=== PATIENT | female | born 1980 | race Caucasian/White ===

== ENCOUNTER 2021-12-18 09:52 | Outpatient (CLI) | payer OTHER, SELFPAY ==
[2021-12-18 12:24] LABS: Vitamin B12 385 pg/mL (211-911); Vitamin D,25 Hydroxy 29.8 ng/mL
[2021-12-18 12:55] LABS: ALB/GLOB Ratio 1.1 RATIO (0.9-2.4); AST(SGOT) 26 U/L (15-37); Alanine Aminotransfer ALT/SGPT 48 U/L (13-56); Alkaline Phosphatase 40 U/L (45-117); Anion Gap 7 (5-15); BUN 13 mg/dL (7-18); BUN/Creat Ratio 18.3 RATIO (10-20); Chloride 105 mmol/L (98-107); Cholesterol 132 mg/dL (200); Creatinine, Serum 0.71 mg/dL (0.55-1.02); EST Glomerular Filtration Rate 95 mL/min (>60); Est Glom Filt Rate - Afr Amer 115 mL/min (>60); Globulin 3.8 g/dL (2.2-4.2); Glucose 85 mg/dL (74-106); High Density Lipoprotein 75 mg/dL; Potassium 4.1 mmol/L (3.5-5.1); Protein, Total 7.8 g/dL (6.4-8.2); Sodium Level 138 mmol/L (136-145); Thyroid Stim Hormone (TSH) 1.63 uIU/mL (0.358-3.74); Triglycerides 26 mg/dL; Very Low Density Lipoprotein 5 mg/dL (5-40)
== END 2021-12-18 23:59 | disposition home or self-care (01) ==
LOC: MTLAB 09:54
PROVIDERS: PCP Family Medicine; Referring Provider Family Medicine; Visit Provider Family Medicine
DX: Z13.220 Encounter for screening for lipoid disorders (principal); R53.83 Other fatigue; Z83.79 Family history of other diseases of the digestive system
CPT/HCPCS: 36415; 80053; 80061; 82306; 82607; 84443

== ENCOUNTER → 2022-04-21 | Outpatient (CLI) | payer OTHER, SELFPAY ==
[2022-04-21 09:59] LABS: Absolute Lymphocyte Count 1.26 X10^3/uL (0.83-4.51); Absolute Neutrophil Count 3.6 X10^3/uL (2.0-7.7); Basophil# 0.04 X10^3/uL; Basophil% 0.7 % (0-1); Eosinophil# 0.39 X10^3/uL; Eosinophils% 6.7 % (0-5); Hematocrit 40.1 % (37-47); Hemoglobin 13.1 g/dL (12.0-15.0); Lymphocyte # 1.26 X10^3/ul (0.83-4.51); Lymphocyte % 21.8 % (19-41); Mean Corp Hgb Conc 32.7 g/dL (32-36); Mean Corpuscular Hgb 31.2 pg (27.0-32.0); Mean Corpuscular Volume 95.5 fL (81-99); Mean Platelet Vol. 10.1 fl (6.2-12.0); Monocyte# 0.46 X10^3/uL; NRBC Flagged by Analyzer 0 % (0-5); Neutrophil # 3.62 X10^3/uL (2.7-7.7); Neutrophil % 62.6 % (47-70); Platelet Count 264 K/mm3 (150-450); RBC Distribution Width CV 12.1 % (11.6-14.6); White Blood Count 5.8 K/mm3 (4.4-11.0)
[2022-04-21 10:27] LABS: Ferritin 17 ng/mL (8-252); Iron 75 ug/dL (50-170)
[2022-04-21 10:36] LABS: Vitamin B12 904 pg/mL (211-911); Vitamin D,25 Hydroxy 41.2 ng/mL
== END | disposition home or self-care (01) ==
LOC: MTLAB 08:46
PROVIDERS: PCP Family Medicine; Referring Provider Family Medicine; Visit Provider Family Medicine
DX: R53.83 Other fatigue (principal); E53.8 Deficiency of other specified B group vitamins; E55.9 Vitamin D deficiency, unspecified
CPT/HCPCS: 36415; 82306; 82533; 82607; 82728; 83540; 85025

== ENCOUNTER → 2025-10-08 | Outpatient (CLI) | payer OTHER, SELFPAY ==
--- OUTSIDE RECORDS SUMMARY | 2025-10-09 07:08 | XMS RPT_ITS | CCD ---
Author Organization [facility] Inform ion Partnership [facility] Care Team Providers Care Airplane Designer Name Role Phone Jenna PADILLA, Arsh Rosenberg Primary Care Provider [phone] Unavailable Primary Care Provider CHAVEZ Nelson Referring Unavailable CHAVEZ LAW Attending Unavailable Ahsley Carson Attending Jose Avalos Referring Unavailable Jose Meyers Primary Care Unavailable Medications Completed/Discontinued Medications Medication Drug Class(es) Dates Sig (Normalized) Sig (Original) acetaminophen 325 mg / HYDROcodone bitartrate 5 mg oral tablet (2 sources) Opioid Agonist Start: 07-14-2017 End: 11-19-2019 Hydrocodone-Acetam inophen Discontinued 1 - 2 EACH PO EVERY 6 HOURS NEEDED July 14, 2017 12:59pm November 19, 2019 9:02am amoxicillin 875 mg / clavulanate 125 mg oral tablet (2 sources) Penicillin-class Antibacterial Start: 12-03-2019 End: 12-13-2019 take 1 tablet by mouth every twelve hours Amoxicillin-Pot Clavulanate (Augmentin) 875-125 mg tablet Discontinued 1 TABLET PO Q12H 20 December 03, 2019 12:00am December 13, 2019 12:08am citalopram 40 mg oral tablet (5 sources) Serotonin Reuptake Inhibitor Start: 11-24-2021 take 1 tablet by mouth once daily citalopram (CELEXA) 40 mg tablet take 1 tablet by mouth once daily 120 tablet 1 11/24/2021 Active Start: 07-08-2017 End: 11-19-2019 take 10 mg by mouth once daily Citalopram Discontinued 10 MG PO DAILY July 07, 2017 11:00pm November 19, 2019 9:02am Comment on above: take 1 tablet by angelina th once daily ibuprofen 600 mg oral tablet (2 sources) Nonsteroidal Anti-inflammatory Drug Start: 7 End: 0 take 600 mg by mouth every six hours Ibuprofen Discontinued 600 MG PO EVERY 6 HOURS 30 July 13, 2017 11:00pm November 19, 2019 9:02am Magnesium (2 sources) Start: 7 End: 0 take 400 mg by mouth once daily Magnesium Discontinued 400 MG PO DAILY July 07, 2017 11:00pm November 19, 2019 9:02am Start: 07-08-2017 End: 11-19-2019 take 400 mg by mouth once daily Magnesium Discontinued 400 MG PO DAILY July 08, 2017 12:00am November 19, 2019 10:02am vitamin b12 0.5 mg oral tablet (2 sources) Vitamin B12 Start: 07-08-2017 End: 11-19-2019 take 1000 ug by mouth once daily Cyanocobalamin (Vitamin B-12) Discontinued 1000 MCG PO DAILY@0800 July 07, 2017 11:00pm November 19, 2019 9:02am Problems Active Problems Problem Classification Problem Date Documented Da te Episodic/Chronic Abdominal pain (2 sources) Pain in pelvis; Translations: [Pelvic and perineal pain] Onset: 10-17-2023 10-17-2023 Episodic Acute bronchitis (2 sources) Acute bronchitis; Translations: [Acute bronchitis, unspecified] Episodic Anxiety disorders (3 sources) Generalized anxiety disorder; Translations: [Generalized anxiety disorder] Onset: 11-09-2007 11-09-2007 Chronic Menstrual disorders (2 sources) Dysmenorrhea; Translations: [Dysmenorrhea, unspecified] Onset: 10-17-2023 10-17-2023 Chronic Open wounds of extremities (2 sources) Laceration of hand; Translations: [Laceration without foreign body of left hand, initial encounter] Episodic Other gastrointestinal disorders (3 sources) Constipation; Translations: [Constipation, unspecified] 09-14-2005 Episodic Other hereditary and degenerative nervous system conditions (3 sources) Restless legs; Translations: [Restless legs syndrome] Onset: 02-11-2015 02-11-2015 Chronic Residual codes; unclassified (3 sources) Daytime somnolence; Translations: [Other hypersomnia] Onset: 06-12-2014 11-02-2021 Chronic Thyroid disorders (3 sources) Non-toxic uninodular goiter; Translations: [Nontoxic single thyroid nodule] Onset: 03-12-2009 03-12-2009 Chronic Past or Other Problems Problem Classification Problem Date Documented Da te Episodic/Chronic Nonspecific chest pain (3 sources) Chest pain; Translations: [Chest pain, unspecified] Onset: 02-13-2009 02-13-2009 Episodic Other upper respiratory disease (3 sources) Hypertrophy of nasal turbinates; Translations: [Hypertrophy of nasal turbinates] Onset: 02-27-2014 02-27-2014 Episodic Results Test Name Value Interpretation Reference Range Facil ity US FEMALE PELVIS TRANSABD LT Don 10-17-2023 US FEMALE PELVIS TRANSABD LTD * * *Final Report* * * DATE OF EXAM: Oct 17 2023 11:14AM WRU 1059 - US FEMALE PELVIS TRANSABD LTD / PROCEDURE REASON: multiple diagnoses * * * * Physician Interpretation * * * * EXAMINATION: TRANSVAGINAL AND LIMITED TRANSABDOMINAL FEMALE PELVIC ULTRASOUND CLINICAL HISTORY: Pelvic cramping. Dysmenorrhea TECHNIQUE: Sonography of the pelvis was performed by transvaginal and transabdominal (limited) techniques. Images were obtained and stored in a permanent archive. MQ: [facility]_2021 COMPARISON: None RESULT: Uterus: -Size: 8.9 x 3.7 x 4.8 cm -Orientation: Anteverted and anteflexed -Endometrial echo complex: Evaluation of the endometrium was adequate. Trace endometrial fluid The endometrial echo complex measured 0.5 cm. -Cervix: Nabothian cysts present, otherwise unremarkable. -Adenomyosis assessment: There are no sonographic findings of adenomyosis. -Fibroids: There are no fibroids. Right Ovary: 2.7 x 1.6 x 1.8 cm. Normal appearance Simple 1.1 cm follicular cyst within it Left Ovary: 2.7 x 1.2 x 1.5 cm. Normal appearance Free Fluid: No abnormal free fluid is present. IMPRESSION: Trace endometrial fluid. Otherwise normal pelvic ultrasound Dba: PSCB Transcribe Date/Time: Oct 18 2023 9:29A Dictated by : DARRYN ARCE MD This examination was interpreted and the report reviewed and electronically signed by: DARRYN ARCE MD on Oct 18 2023 9:34AM EST [id number] Normal [facility] FEMALE PELVIS TRANSVAGon 10-17-2023 FEMALE PELVIS TRANSVAG * * *Final Report* * * DATE OF EXAM: Oct 17 2023 11:14AM WRU 1060 - US FEMALE PELVIS TRANSVAG / PROCEDURE REASON: multiple diagnoses * * * * Physician Interpretation * * * * EXAMINATION: TRANSVAGINAL AND LIMITED TRANSABDOMINAL FEMALE PELVIC ULTRASOUND CLINICAL HISTORY: Pelvic cramping. Dysmenorrhea TECHNIQUE: Sonography of the pelvis was performed by transvaginal and transabdominal (limited) techniques. Images were obtained and stored in a permanent archive. MQ: [facility]_2021 COMPARISON: None RESULT: Uterus: -Size: 8.9 x 3.7 x 4.8 cm -Orientation: Anteverted and anteflexed -Endometrial echo complex: Evaluation of the endometrium was adequate. Trace endometrial fluid The endometrial echo complex measured 0.5 cm. -Cervix: Nabothian cysts present, otherwise unremarkable. -Adenomyosis assessment: There are no sonographic findings of adenomyosis. -Fibroids: There are no fibroids. Right Ovary: 2.7 x 1.6 x 1.8 cm. Normal appearance Simple 1.1 cm follicular cyst within it Left Ovary: 2.7 x 1.2 x 1.5 cm. Normal appearance Free Fluid: No abnormal free fluid is present. IMPRESSION: Trace endometrial fluid. Otherwise normal pelvic ultrasound Dba: PSCB Transcribe Date/Time: Oct 18 2023 9:29A Dictated by : DARRYN ARCE MD This examination was interpreted and the report reviewed and electronically signed by: DARRYN ARCE MD on Oct 18 2023 9:34AM EST [id number] Normal [facility] CNOVon 10-11-2023 CNOV Office Visit (OBGYWM ) MELONIE SANTOS ([id number]) 1980 F Date Time Provider Department 10/11/23 1:20 PM CHAVEZ LAW OBGHADAWCameron During your visit today, we recorded the following information about you: Blood pressure Weight Height Last Period 114/80 68.4 kg 1.657 m 09/13/23 Chavez Law MD 10/11/2023 2:08 PM Signed Drain Layer offered: Patient declines. Melonie is a 42 year old who presents for an annual gynecologic exam. She reports increasingly painful menses. Also she has pelvic cramping with ovulation. Menses: cycles every 28 days and 4-6 days of flow. Contraception: vasectomy HPV vaccine: No Last Pap: 05/04/2017 normal HPV: 04/28/2017 negative History of abnormal pap: No Last mammogram: iagnostic imaging OB History T2 L2 SAB0 IAB0 Ectopic0 Multiple0 Live Births0 [employer] History LMP: 09/26/2020 (Within Days), Having periods Age at Menarche: Age at First : Age at Menopause: [employer] History Comments: Sexual Activity: Yes; Male Contraception: Vasectomy PAST MEDICAL HISTORY Diagnosis Date Melanoma (HCC) stage 2 on back Unspecified constipation Constipation PAST SURGICAL HISTORY Procedure Laterality Date DELIVERY ONLY 06/2005 , low cervical HYSTEROSCOPY 07/15/2017 hysteroscopy DANDC w/ Mirena insertion LAPAROSCOPIC CHOLEYCYSTECTOMY 2001 Cholecystectomy, lap PAST SURGICAL HISTORY OF 04/26 removal of stage 2 melanoma on back REMOVAL OF TONSILS,<12 Y/O 1994 Tonsillectomy THYROID LEFT FINE NEEDLE ASPIRATION 04/15 Dr. Erickson FAMILY HISTORY Problem Relation Age of Onset Cancer Paternal Grandmother liver Prostate Cancer Paternal Grandfather SOCIAL HISTORY Social History Tobacco Use Smoking status: Never Smokeless tobacco: Never Vaping Use Vaping Use: Never used Substance Use Topics Alcohol use: No Drug use: No REVIEW OF SYSTEMS Abdomen: No abdominal pain, nausea, vomiting, diarrhea, or constipation. No bloating, early satiety, indigestion, or increased flatulence. Bladder: No dysuria, gross hematuria, urinary frequency, urinary urgency, or incontinence. Breast: No breast lumps, nipple d/c, overlying skin changes, redness or skin retraction. Allergies and current medication updated:Yes EXAM: LMP 09/26/2020 GENERAL: pleasant, female in no apparent distress BREAST: soft, non-tender, symmetric, no dominant mass, normal nipple-areolar complex, no lymphadenopathy, and no nipple discharge CHEST: Normal inspiratory effort ABDOMEN: soft, non-tender, and no masses PELVIC: external genitalia normal, normal Bartholin's glands, urethra, [place]'s glands, no vulvar lesions, no cervical lesions, good vaginal support, physiologic discharge present, normal appearing perineal body and perianal region BIMANUAL: uterus enlarged, no adnexal masses, and non-tender RECTOVAGINAL: deferred. NEURO: alert and oriented x3,exam grossly non-focal EXTREMITIES: normal ASSESSMENT/PLAN: 1) Health maintenance: Pap done with HPV. Mammogram ordered. Nutrition, exercise and routine health maintenance exams reviewed. Colonoscopy referral 2) Contraception: vasectomy. Contraceptive options reviewed and information provided. 3) Dysmenorrhea, pelvic cramping AND enlarged uterus - check pelvic US 4) Follow up one year or sooner as needed MD Keyshawn Eng Ma, [place] 10/11/2023 2:[address] [facility] OPEN ACCESS QUESTIONNAIRE 1. Are you currently having any new or unusual stomach/gastrointestin al issues at this time such as constipation, diarrhea, abdominal pain, rectal bleeding etc?Yes / has constipation, diarrhea and abdominal pain. No treatment 2. Do you have any difficulty swallowing? No 3. Do you have any implanted devices such as a defibrillator, pacemaker, cardiac stents or deep brain stimulator? No 4. Do you take any Blood thinners such as Coumadin, Plavix, Xarelto, Eliquis, Brilinta or any other blood thinner? No 5. Do you have any new or past cardiac (heart) or pulmonary (lung) issues? No 6. Do you currently use any oxygen? No 7. Have you been hospitalized in the past 6 weeks? No 8. Have you had difficulty with anesthesia previously re: Difficult intubation? No Other difficulty or allergic reaction to anesthesia other than post op N/V? No 9. Are you on dialysis? No 10. Do you have any bleeding disorders such as hemophilia or Factor 5? No 11. Are you an Insulin Dependent Diabetic? No IF ANY OF THE TOP ELEVEN QUESTIONS ARE ANSWERED YES PLEASE SCHEDULE THE PATIENT FOR A CONSULT. advised 12. Is the patient's BMI 40 or greater? No:Body mass index is 24.9 kg/m?.. 13. Do you take any narcotics or anti-Anxiety medications? Yes / citalopram 14. Do you use any illegal or recreational drugs including marijuana? No 15. Any alcohol use: No. 16. Have you been diagnosed with chronic liver d (more content not included)... Normal [facility] HPV W/GENOTYPE THIN PREPon 1 12-12-2022 HPV 16 Ag Ql (Unsp spec) Negative Normal Negative for HPV DNA high risk type 16 by PCR [facility] Comment on above: Order Comment: Speci men Type: FLUID SPECIMEN Ordering Facility: [facility] Address: [address] [place] [address] Performed By: #### H PVHRT #### [facility] CLIA [id number] [address] [place] [address] [place] HPV 18 Ag Ql (Unsp spec) Negative Normal Negative for HPV DNA high risk type 18 by PCR [facility] Comment on above: Order Comment: Speci men Type: FLUID SPECIMEN Ordering Facility: [facility] Address: [address] [place] [address] Performed By: #### H PVHRT #### [facility] CLIA [id number] [address] [place] [address] [place] HPV 31+33+35+39+45+51+5 2+56+58+59+66+68 DNA MELISSA+probe Ql (Cvx) Negative for HPV DNA high risk types: 31,33,35,39,45,51,52,5 6,58,59,66,68 by PCR. Normal Negative for HPV DNA high risk types: 31,33,35,39,45, 51,52,56,58,59, 66,68 by PCR. [facility] Comment on above: Order Comment: Speci men Type: FLUID SPECIMEN Ordering Facility: [facility] Address: [address] [place] [address] Performed By: #### H PVHRT #### [facility] CLIA [id number] [address] [place] [address] [place] PAP TESTon 10-11-2023 ADEQUACY Satisfactory for interpretation Normal [facility] Comment on above: Order Comment: Speci men Type: FLUID SPECIMEN Ordering Facility: [facility] Address: [address] [place] [address] Performed By: #### L [id number] #### [facility] CLIA [id number] [address] [place] [address] [place] CASE REPORT Normal [facility] Comment on above: Order Comment: Speci men Type: FLUID SPECIMEN Ordering Facility: [facility] Address: [address] [place] [address] Result Comment: Gyne cologic Cytology Report Case: [id number] Authorizing Provider: Chavez Law MD Collected: 10/11/2023 01:47 PM Ordering Location: OB/Gynecology Received: 10/12/2023 08:22 AM First Screen: Alon Maher Tech Specimen: Pap Test, ThinPrep, Cervix Performed By: #### L [id number] #### [facility] CLIA [id number] [address] [place] [address] [place] CLINICAL HISTORY, CYTOLOGY, LAB COORDINATOR Routine Exam Normal [facility] Comment on above: Order Comment: Speci men Type: FLUID SPECIMEN Ordering Facility: [facility] Address: [address] [place] [address] Performed By: #### L [id number] #### [facility] CLIA [id number] [address] [place] [address] [place] FINAL PERFORMING LAB Normal [facility] Comment on above: Order Comment: Speci men Type: FLUID SPECIMEN Ordering Facility: [facility] Address: [address] [place] [address] Result Comment: Tech nical component, restorative aide screening performed at [facility], [address] [place], [place] [id number] CLIA# [id number] Diagnostic interpretation performed at [facility], [address] [place], [place] [id number] CLIA# [id number] Kalsominer: Ezio Monterroso M.D. Performed By: #### L [id number] #### [facility] CLIA [id number] [address] [place] [place] [id number] [place] HPV REFLEX Yes HPV Normal [facility] Comment on above: Order Comment: Speci men Type: FLUID SPECIMEN Ordering Facility: [facility] Address: [address] [place] [address] Performed By: #### L [id number] #### [facility] CLIA [id number] [address] [place] [address] [place] INTERPRETATION, CYTOLOGY, LAB COORDINATOR Normal [facility] Comment on above: Order Comment: Speci men Type: FLUID SPECIMEN Ordering Facility: [facility] Address: [address] [place] [address] Result Comment: Nega tive for intraepithelial lesion or malignancy. Performed By: #### L [id number] #### [facility] CLIA [id number] [address] [place] [address] [place] LMP 09/13/2023 Normal [facility] Comment on above: Order Comment: Speci men Type: FLUID SPECIMEN Ordering Facility: [facility] Address: [address] [place] [address] Performed By: #### L [id number] #### [facility] CLIA [id number] [address] [place] [address] [place] PAP DISCLAIMER COMMENT The Pap Smear is a screening test for cervical cancer. False negative results occur with all screening tests, emphasizing the need for rescreening at recommended intervals, and clinical correlation. Normal [facility] Comment on above: Order Comment: Speci men Type: FLUID SPECIMEN Ordering Facility: [facility] Address: [address] [place] [address] Performed By: #### L [id number] #### [facility] CLIA [id number] [address] [place] [id number] [place] PAP PRISON WARDEN COMMENT This specimen has be en analyzed by the ThinPrep Imaging System, an automated imaging and review system, which assists the laboratory in evaluating cells on ThinPrep Pap tests. Following automated imaging, selected cast from every slide are reviewed by a restorative aide. Normal [facility] Comment on above: Order Comment: Speci men Type: FLUID SPECIMEN Ordering Facility: [facility] Address: [address] [place] [address] Performed By: #### L [id number] #### [facility] CLIA [id number] [address] [facility] [id number] [place] [address] [place] Absolute lymphocyte counton 04-21-2022 Lymphocytes Auto (Unsp spec) [#/Vol] 1.26 10*3/uL 0.83-4.51 [facility] Work Phone: Basophil percentageon 2021 Basophils/100 WBC (Bld) 0.7 % 0-1 [facility] Work Phone: Eosinophils/100 WBC (Bld) 6.7 % 0-5 [facility] Work Phone: Neutrophils (Bld) [#/Vol] 3.6 10*3/uL 2.0-7.7 [facility] Work Phone: Neutrophils/100 WBC (Bld) 62.6 % 47-70 [facility] Work Phone: WBC (Bld) [#/Vol] 5.8 10*3/uL 4.4-11.0 [facility] Work Phone: Blood erythrocytes count (nu mber/volume)on 04-21-2022 RBC (Bld) [#/Vol] 4.20 10*6/uL 4.2-5.4 [facility] Work Phone: Blood hemoglobin measurement (mass/volume)on 04-21-2022 Hemoglobin (Bld) [Mass/Vol] 13.1 g/dL 12.0-15.0 [facility] Work Phone: Blood lymphocytes/100 leukoc yteson 04-21-2022 Lymphocytes/100 WBC (Bld) 21.8 % 19-41 [facility] Work Phone: Blood monocytes/100 leukocyt eson 04-21-2022 Monocytes/100 WBC (Bld) 8.0 % 0-10 [facility] Work Phone: Blood platelet mean volumeon 04-21-2022 Platelet mean volume (Bld) [Entitic vol] 10.1 fL 6.2-12.0 [facility] Work Phone: Determination of erythrocyte mean corpuscular volume (MCV)on 04-21-2022 MCV (RBC) [Entitic vol] 95.5 fL 81-99 [facility] Work Phone: Hematocrit Auto (Bld) [Volum e fraction]on 04-21-2022 Hematocrit (Bld) [Volume fraction] 40.1 % 37-47 [facility] Work Phone: Iron measurement (mass/mass) on 04-21-2022 Iron (Unsp spec) [Mass/Mass] 75 ug/dL 50-170 [facility] Work Phone: Laboratory - Chemistry and C hemistry - challengeon 04-21-2022 Cobalamin (Vitamin B12) [Mass/Vol] 904 pg/mL 211-911 [facility] Work Phone: Laboratory - Hematology and Cell countson 04-21-2022 Erythrocyte distribution width (RBC) [Entitic vol] 42.0 fL 35.1-43.9 [facility] Work Phone: Erythrocyte distribution width (RBC) [Ratio] 12.1 % 11.6-14.6 [facility] Work Phone: Immature granulocytes/100 WBC (Bld) 0.200 % 0.0-0.9 [facility] Work Phone: Comment on above: IG% - Immature Granu locytes (promyelocytes, myelocytes and metamyelocytes) > 1% indicates that a LEFT SHIFT is Present. MCH (RBC) [Entitic mass] 31.2 pg 27.0-32.0 [facility] Work Phone: Nucleated RBC/100 WBC (Bld) [Ratio] 0 % 0-5 [facility] Work Phone: MCHC Auto (RBC) [Mass/Vol]on 04-21-2022 MCHC (RBC) [Mass/Vol] 32.7 g/dL 32-36 [facility] Work Phone: No Panel Informationon 04-21 Vitamin D 25-Hydroxy 41.2 ng/mL [facility] Work Phone: Comment on above: Vitamin D 25(OH) Sta tus Range Deficiency <20 ng/mL (50nmol/L) Insufficiency 20 - 30 ng/mL (50 - 75 nmol/L) Sufficiency 30 - 100 ng/mL (75 - 250 nmol/L) Toxicity >100 ng/mL (>250 nmol/L) Platelets bldon 04-21-2022 Platelets (Bld) [#/Vol] 264 10*3/uL 150-450 [facility] Work Phone: Serum or plasma cortisol emy surement (mass/volume)on 04-21-2022 Cortisol [Mass/Vol] 14.30 ug/dL 3.44-22.45 [facility] Work Phone: Comment on above: Adult (AM) 5.27 - 22 .45 ug/dL Adult (PM) 3.44 - 16.76 ug/dLPlease note revised CORTISOL reference range effective 2020. Serum or plasma ferritin emy surement (mass/volume)on 04-21-2022 Ferritin [Mass/Vol] 17 ng/mL 8-252 [facility] Work Phone: Encounters Encounter Date Encounter Type Care Provider Facility Start: 08-12-2025 ambulatory Ashley Patel cility:[facility] Start: 10-17-2023 End: 10-17-2023 ambulatory [facility] Facility:[facility] Start: 10-17-2023 End: 10-17-2023 Subsequent hospital visit by physician [facility] Work Phone: Radiology Comment on above: Pelvic cramping [R10 .2] Start: 10-11-2023 End: 10-11-2023 ambulatory [facility] Facility:[facility] Start: 03-12-2023 Refill Jennifer muse MD Work Phone: OB/Gynecology Comment on above: Refill Request Start: 07-31-2022 Refill Jennifer muse MD Work Phone: OB/Gynecology Comment on above: Refill Request Start: 04-21-2022 End: 04-21-2022 Patient encounter procedure [facility], [place] Procedures Date Procedure Procedure Detail Performing Clinician Start: 10-10-2020 Mammography Jennifer chaudhary MD Work Phone: Start: 05-22-2014 Adult depression scr eening assessment Jennifer Perea MD Work Phone: Plan of Treatment Date Care Activity Detail Author Start: 09-04-2029 Urine microalbumin profile DTaP,Tdap,Td Vaccine (9 - Td or Tdap) [facility] Start: 02-11-2025 Urine microalbumin profile DTAP,TDAP,TD (7 - Td or Tdap) [facility] Start: 07-08-[address] [facility] Start: 11-07-2022 DEPRESSION ASSESSMENT DEPRESSION ASSESSMENT [facility] Start: 07-08-2022 Influenza vaccination INFLUENZA (#1) [facility] Start: 04-26-2022 HPV TESTING HPV TESTING [facility] Start: 04-26-2022 PAP [address] PAP TESTING [facility] Start: 04-26-2022 Screening for malignant neoplasm of cervix [facility] Start: 10-10-[address] [facility] Start: 10-10-2021 Screening for malignant neoplasm of breast Mammogram Screening [facility] Start: 05-22-2015 Adult depression screening assessment DEPRESSION SCREENING [facility] Start: 1996 HEPATITIS C SCREENING HEPATITIS C SCREENING [facility] Start: 1996 Hepatitis C screening Hepatitis C Screening [facility] Start: 1996 HIV SCREENING HIV SCREENING [facility] Start: 1996 HIV screening HIV Screening [facility] Start: 06-14-1979 COVID-19 VACCINE (#1) COVID-19 VACCINE (#1) [facility] Start: 1978 HEPATITIS B (1 of 3 - 3-dose series) HEPATITIS B (1 of 3 - 3-dose series) [facility] Start: 1978 Hepatitis B Vaccine (1 of 3 - 3-dose series) Hepatitis B Vaccine (1 of 3 - 3-dose series) [facility] Us pelvic nonobstetr ic image dcmtn limited/f/u US FEMALE PELVIS TRANSABD LTD Radiology Routine Pelvic cramping Dysmenorrhea 10/17/2023 11:14 AM EST [facility] Work Phone: Us transvaginal US FEMALE PELVIS TRANSVAG Radiology Routine Pelvic cramping Dysmenorrhea 10/17/2023 11:14 AM EST [facility] Work Phone: Immunizations Immunization Date Immunization Notes Care Provider [facility] 09-03-2021 influenza virus vacc ine, unspecified formulation 1 Work Phone: [facility] 02-11-2015 tetanus toxoid, redu ivania diphtheria toxoid, and acellular pertussis vaccine, adsorbed Jennifer Perea MD Work Phone: [facility] 08-17-2013 influenza virus vacc ine, whole virus Jennifer Perea MD Work Phone: [facility] 07-03-1984 diphtheria, tetanus toxoids and acellular pertussis vaccine Jennifer Perea MD Work Phone: [facility] 07-03-1984 trivalent poliovirus vaccine, live, oral Jennifer Perea MD Work Phone: [facility] 04-08-1982 measles, mumps and rubella virus vaccine Jennifer Perea MD Work Phone: [facility] 09-10-1980 diphtheria, tetanus toxoids and acellular pertussis vaccine Jennifer Perea MD Work Phone: [facility] 09-10-1980 trivalent poliovirus vaccine, live, oral Jennifer Perea MD Work Phone: [facility] 10-24-1979 diphtheria, tetanus toxoids and acellular pertussis vaccine Jennifer Perea MD Work Phone: [facility] 06-01-1979 diphtheria, tetanus toxoids and acellular pertussis vaccine Jennifer Perea MD Work Phone: [facility] 06-01-1979 trivalent poliovirus vaccine, live, oral Jennifer Perea MD Work Phone: [facility] 03-28-1979 diphtheria, tetanus toxoids and acellular pertussis vaccine Jennifer Perea MD Work Phone: [facility] 03-28-1979 trivalent poliovirus vaccine, live, oral Jennifer Perea MD Work Phone: [facility] 01-31-1979 trivalent poliovirus vaccine, live, oral Jennifer Perea MD Work Phone: [facility] Payers Date Payer Category Payer Self-pay [id number] 2020 Unknown [id number] 2017 Unknown [id number] Unknown [id number] Social History Date Type Detail Facility Start: 11-19-2019 Tobacco smoking stat [facility] Unknown if ever smoked [facility] Work Phone: Start: 1980 Sex Assigned At Female [facility] Work Phone: Start: 10-11-2023 [facility] Start: 10-10-2020 End: 10-11-2023 Alcohol intake Current non-drinker of alcohol (finding) [facility] Start: 1980 Sex Assigned At Not on file [facility] Start: 10-11-2023 Tobacco use and exposure Smokeless tobacco non-user [facility] Start: 10-11-20[address] of [address] [facility] Start: 10-11-2023 Tobacco use panel [facility] National Score (1-100), lower number is lower risk [address] [facility] Progress note 10-17-2023 Note Date & Type Note Facility 10-17-2023 Note HNO ID: [id number] Author: Amy Multani RDMS Service: ? Author Type: [employer] Helper Type: Progress Notes Filed: 10/17/2023 11:06 AM Note Text: Radiology Service Progress Note PATIENT NAME: Melonie Santos DATE OF SERVICE: October 17, 2023 TIME: 11:06 AM PATIENT IDENTITY VERIFICATION COMPLETED USING TWO (2) IDENTIFIERS: Name and Date of confirmed by patient verbally. FALL SCREENING: Has the patient had 2 falls in the last year or 1 fall with injury or currently using an Ambulatory Assistive Device (Walker, Cane, Wheelchair, Crutches, etc.)? No PATIENT GENDER DATA: Female. status: : No status: NO. PATIENT RELEVANT IMPLANT DATA REVIEWED: Not Applicable RADIOLOGY DEPARTMENT: Ultrasound PERIPHERAL IV DATA: Not applicable SIGNED BY: Amy Multani RDMS October 17, 2023 11:06 AM [facility] History of Present illness Narrative 10-17-2023 Amy Multani RDMS - 10/17/2023 10:45 AM EST Note Date & Type Note Facility 10-17-2023 History of Presen t illness Narrative Radiology Service Progress Note PATIENT NAME: Melonie Santos DATE OF SERVICE: October 17, 2023 TIME: 11:06 AM PATIENT IDENTITY VERIFICATION COMPLETED USING TWO (2) IDENTIFIERS: Name and Date of confirmed by patient verbally. FALL SCREENING: Has the patient had 2 falls in the last year or 1 fall with injury or currently using an Ambulatory Assistive Device (Walker, Cane, Wheelchair, Crutches, etc.)? No PATIENT GENDER DATA: Female. status: : No status: NO. PATIENT RELEVANT IMPLANT DATA REVIEWED: Not Applicable RADIOLOGY DEPARTMENT: Ultrasound PERIPHERAL IV DATA: Not applicable SIGNED BY: Amy Multani RDMS October 17, 2023 11:06 AM documented in this encounter [facility] Progress note 10-11-2023 Note Date & Type Note Facility 10-11-2023 Note HNO ID: [id number] Author: Larisa Mahajan Ma Service: ? Author Type: ? Type: Progress Notes Filed: 10/11/2023 2:08 PM Note Text: TR OPEN ACCESS QUESTIONNAIRE 1. Are you currently having any new or unusual stomach/gastrointestinal issues at this time such as constipation, diarrhea, abdominal pain, rectal bleeding etc?Yes / has constipation, diarrhea and abdominal pain. No treatment 2. Do you have any difficulty swallowing? No 3. Do you have any implanted devices such as a defibrillator, pacemaker, cardiac stents or deep brain stimulator? No 4. Do you take any Blood thinners such as Coumadin, Plavix, Xarelto, Eliquis, Brilinta or any other blood thinner? No 5. Do you have any new or past cardiac (heart) or pulmonary (lung) issues? No 6. Do you currently use any oxygen? No 7. Have you been hospitalized in the past 6 weeks? No 8. Have you had difficulty with anesthesia previously re: Difficult intubation? No Other difficulty or allergic reaction to anesthesia other than post op N/V? No 9. Are you on dialysis? No 10. Do you have any bleeding disorders such as hemophilia or Factor 5? No 11. Are you an Insulin Dependent Diabetic? No IF ANY OF THE TOP ELEVEN QUESTIONS ARE ANSWERED YES PLEASE SCHEDULE THE PATIENT FOR A CONSULT. advised 12. Is the patient's BMI 40 or greater? No:Body mass index is 24.9 kg/m?.. 13. Do you take any narcotics or anti-Anxiety medications? Yes / citalopram 14. Do you use any illegal or recreational drugs including marijuana? No 15. Any alcohol use: No. 16. Have you been diagnosed with chronic liver disease such as hepatitis or cirrhosis? No 17. Do you have a seizure disorder? No 18. Do you have ulcerative colitis or Crohn's disease? No 19. Are you or could you be ? No 20. Any other important health information we should be made aware of prior to your colonoscopy? No To be completed by LIP: Did patient have MAC anesthesia with a previous endoscopy procedure? No Patient appropriate for Open Access Colonoscopy: Yes: appropriate for Open Access Procedure Checklist: Prior to closing the encounter: Complete questionnaire: Yes Confirm Prep order has been Ordered/Pended: Yes. Patient's procedure could be delayed if not given the script for the prep. Please ensure the prep is escripted to pharmacy or printed. Instructions for the prep will print upon filing or pending this smartset. Please send all open access questionnaires to [facility] Pool #[id number] [facility] Progress note 10-11-2023 Note Date & Type Note Facility 10-11-2023 Note HNO ID: [id number] Author: Chavez Law MD Service: ? Author Type: Physician Type: Progress Notes Filed: 10/11/2023 2:08 PM Note Text: Drain Layer offered: Patient declines. Melonie is a 42 year old who presents for an annual gynecologic exam. She reports increasingly painful menses. Also she has pelvic cramping with ovulation. Menses: cycles every 28 days and 4-6 days of flow. Contraception: vasectomy HPV vaccine: No Last Pap: 05/04/2017 normal HPV: 04/28/2017 negative History of abnormal pap: No Last mammogram: iagnostic imaging OB History T2 L2 SAB0 IAB0 Ectopic0 Multiple0 Live Births0 [employer] History LMP: 09/26/2020 (Within Days), Having periods Age at Menarche: Age at First : Age at Menopause: [employer] P[employer] History Comments: Sexual Activity: Yes; Male Contraception: Vasectomy PAST MEDICAL HISTORY Diagnosis Date Melanoma (HCC) stage 2 on back Unspecified constipation Constipation PAST SURGICAL HISTORY Procedure Laterality Date DELIVERY ONLY 06/2005 , low cervical HYSTEROSCOPY 07/15/2017 hysteroscopy DANDC w/ Mirena insertion LAPAROSCOPIC CHOLEYCYSTECTOMY 2001 Cholecystectomy, lap PAST SURGICAL HISTORY OF 04/26 removal of stage 2 melanoma on back REMOVAL OF TONSILS,<12 Y/O 1994 Tonsillectomy THYROID LEFT FINE NEEDLE ASPIRATION 04/15 Dr. Erickson FAMILY HISTORY Problem Relation Age of Onset Cancer Paternal Grandmother liver Prostate Cancer Paternal Grandfather SOCIAL HISTORY Social History Tobacco Use Smoking status: Never Smokeless tobacco: Never Vaping Use Vaping Use: Never used Substance Use Topics Alcohol use: No Drug use: No REVIEW OF SYSTEMS Abdomen: No abdominal pain, nausea, vomiting, diarrhea, or constipation. No bloating, early satiety, indigestion, or increased flatulence. Bladder: No dysuria, gross hematuria, urinary frequency, urinary urgency, or incontinence. Breast: No breast lumps, nipple d/c, overlying skin changes, redness or skin retraction. Allergies and current medication updated:Yes EXAM: LMP 09/26/2020 GENERAL: pleasant, female in no apparent distress BREAST: soft, non-tender, symmetric, no dominant mass, normal nipple-areolar complex, no lymphadenopathy, and no nipple discharge CHEST: Normal inspiratory effort ABDOMEN: soft, non-tender, and no masses PELVIC: external genitalia normal, normal Bartholin's glands, urethra, [place]'s glands, no vulvar lesions, no cervical lesions, good vaginal support, physiologic discharge present, normal appearing perineal body and perianal region BIMANUAL: uterus enlarged, no adnexal masses, and non-tender RECTOVAGINAL: deferred. NEURO: alert and oriented x3,exam grossly non-focal EXTREMITIES: normal ASSESSMENT/PLAN: 1) Health maintenance: Pap done with HPV. Mammogram ordered. Nutrition, exercise and routine health maintenance exams reviewed. Colonoscopy referral 2) Contraception: vasectomy. Contraceptive options reviewed and information provided. 3) Dysmenorrhea, pelvic cramping AND enlarged uterus - check pelvic US 4) Follow up one year or sooner as needed Chavez Law MD [facility] Evaluation note Note Date & Type Note Facility Evaluation note [facility] Evaluation note Note Date & Type Note Facility Evaluation note Diagnosis Pelvic cramping Unspecified symptom associated with female genital organs Dysmenorrhea documented in this encounter [facility] Chief Complaint and Reason for Visit Chief Complaint E ORDER Advance Directives No Advanced Directives Records Found Advance Directive Response Recorded Date/ Time Living Will Yes July 08 12:58pm Power of Ferruler Yes July 08, 2017 12:58pm Summary Purpose Family History No Family History Records FoundNo Family History Records Found Additional Source Comments Goals (unrecognized section and content) Goals may be documented in a n alternate sectionGoals may be documented in an alternate section Source Comments (unrecognize d section and content) In the event this informatio n is protected by the Federal Confidentiality of Alcohol and Drug Abuse Patient Records regulations: The Federal rules restrict any use of the information to criminally investigate or prosecute any alcohol or drug abuse patient.[facility] the event this information is protected by the Federal Confidentiality of Alcohol and Drug Abuse Patient Records regulations: The Federal rules restrict any use of the information to criminally investigate or prosecute any alcohol or drug abuse patient.[facility] the event this information is protected by the Federal Confidentiality of Alcohol and Drug Abuse Patient Records regulations: The Federal rules restrict any use of the information to criminally investigate or prosecute any alcohol or drug abuse patient.[facility] Reason for Visit (unrecogniz ed section and content) Reason Comments Refill Request Reason Comments Radiology US Specialty Diagnoses / Procedures Referred By Aliya t Referred To Contact US IMAGING Diagnoses Pelvic cramping Dysmenorrhea Procedures US FEMALE PELVIS TRANSVAG US TRANSVAGINAL Chavez Law MD [address] [place] [address] [id number] Referral ID Status Reason Start Date Expiration Date V isits Requested Visits Authorized [id number] Closed Auto-Generate d Referral 10/11/2023 11/09/2024 1 1 Care Teams (unrecognized sec tion and content) Airplane Designer Relationship Specialty Start Date End Date Arsh West MD [address] [place] [address] PCP - General 12/05/09 INFORMATION SOURCE (unrecogn ized section and content) DATE CREATED AUTHOR 10/22/2023 [facility] DATE CREATED AUTHOR AUTHOR'S KALLIE WOODS 08/13/[address] [facility] FOR RECORDS PERTAINING TO PATIENTS WHO ARE OR HAVE BEEN ENROLLED IN A CHEMICAL DEPENDENCY/SUBSTANCEABUSE PROGRAM, SOME INFORMATION MAY BE OMITTED. This clinical summary was aggregated from multiple sources. Caution should be exercised in using it in the provision of clinical care. This summary normalizes information from multiple sources, and as a consequence, information in this document may materially change the coding, format and clinical context of patient data. In addition, data may be omitted in some cases. CLINICAL DECISIONS SHOULD BE BASED ON THE PRIMARY CLINICAL RECORDS. [employer] [facility]. provides no warranty or guarantee of the accuracy or completeness of information in this document.
--- OUTSIDE RECORDS SUMMARY | 2025-10-09 07:13 | XMS RPT_ITS | CCD ---
Author Organization [facility] Inform ion Partnership [facility] Care Team Providers Care Sewing Machine Bobbin Winder Name Role Phone Jenna PADILLA, Arsh Rosenberg Primary Care Provider [phone] Unavailable Primary Care Provider CHAVEZ Nelson Referring Unavailable CHAVEZ LAW Attending Unavailable Ashley Carson Attending Jose Avalos Referring Unavailable Jose [...] and stored in a permanent archive. MQ: [facility]_2021 COMPARISON: None RESULT: Uterus: -Size: 8.9 [...] Trace endometrial fluid. Otherwise normal pelvic ultrasound Heavy Equipment Technician: PSCB Transcribe Date/Time: Oct 18 2023 9:29A Dictated by : DARRYN ARCE MD This examination was interpreted and the report reviewed and electronically signed by: DARRYN ARCE MD on Oct 18 2023 9:34AM EST [id number] Normal [facility] FEMALE PELVIS TRANSVAGon 10-17-2023 FEMALE PELVIS TRANSVAG [...] and stored in a permanent archive. MQ: [facility]_2021 COMPARISON: None RESULT: Uterus: -Size: 8.9 [...] Trace endometrial fluid. Otherwise normal pelvic ultrasound Heavy Equipment Technician: PSCB Transcribe Date/Time: Oct 18 2023 9:29A Dictated by : DARRYN ARCE MD This examination was interpreted and the report reviewed and electronically signed by: DARRYN ARCE MD on Oct 18 2023 9:34AM EST [id number] Normal [facility] CNOVon 10-11-2023 CNOV Office Visit (OBGYWM ) MELONIE SANTOS ([id number]) 1980 F Date Time Provider Department 10/11/23 1:20 PM CHAVEZ LAW OBGHADAWCameron During your visit today, we recorded the following information about you: Blood pressure Weight Height Last Period 114/80 68.4 kg 1.657 m 09/13/23 Chavez Law MD 10/11/2023 2:08 PM Signed Chemical Research Worker offered: Patient declines. Melonie is a 42 [...] L2 SAB0 IAB0 Ectopic0 Multiple0 Live Births0 Fibreglass Lay Up Worker History LMP: 09/26/2020 (Within Days), Having periods Age at Menarche: Age at First : Age at Menopause: Fibreglass Lay Up Worker History Comments: Sexual Activity: Yes; Male Contraception: [...] external genitalia normal, normal Bartholin's glands, urethra, [place]'s glands, no vulvar lesions, no cervical lesions, [...] Eng Ma, Bethany 10/11/2023 2:08 PM Signed [facility] OPEN ACCESS QUESTIONNAIRE 1. Are you [...] liver d (more content not included)... Normal [facility] HPV W/GENOTYPE THIN PREPon 1 12-12-2022 HPV 16 Ag Ql (Unsp spec) Negative Normal Negative for HPV DNA high risk type 16 by PCR [facility] Comment on above: Order Comment: Speci men Type: FLUID SPECIMEN Ordering Facility: [facility] Address: [address] [place] [address] Performed By: #### H PVHRT #### [facility] CLIA [id number] [address] [place] [address] [place] HPV 18 Ag Ql (Unsp spec) Negative Normal Negative for HPV DNA high risk type 18 by PCR [facility] Comment on above: Order Comment: Speci men Type: FLUID SPECIMEN Ordering Facility: [facility] Address: [address] [place] [address] Performed By: #### H PVHRT #### [facility] CLIA [id number] [address] [place] [address] [place] HPV 31+33+35+39+45+51+5 2+56+58+59+66+68 DNA MELISSA+probe Ql (Cvx) Negative for HPV DNA high risk types: 31,33,35,39,45,51,52,5 6,58,59,66,68 by PCR. Normal Negative for HPV DNA high risk types: 31,33,35,39,45, 51,52,56,58,59, 66,68 by PCR. [facility] Comment on above: Order Comment: Speci men Type: FLUID SPECIMEN Ordering Facility: [facility] Address: [address] [place] [address] Performed By: #### H PVHRT #### [facility] CLIA [id number] [address] [place] [address] [place] PAP TESTon 10-11-2023 ADEQUACY Satisfactory for interpretation Normal [facility] Comment on above: Order Comment: Speci men Type: FLUID SPECIMEN Ordering Facility: [facility] Address: [address] [place] [address] Performed By: #### L [id number] #### [facility] CLIA [id number] [address] [place] [address] [place] CASE REPORT Normal [facility] Comment on above: Order Comment: Speci men Type: FLUID SPECIMEN Ordering Facility: [facility] Address: [address] [place] [address] Result Comment: Gyne cologic Cytology Report Case: [id number] Authorizing Provider: Chavez Law MD Collected: 10/11/2023 01:47 PM Ordering Location: OB/Gynecology Received: 10/12/2023 08:22 AM First Screen: Alon Maher Tech Specimen: Pap Test, ThinPrep, Cervix Performed By: #### L [id number] #### [facility] CLIA [id number] [address] [place] [address] [place] CLINICAL HISTORY, CYTOLOGY, ESL INSTRUCTOR Routine Exam Normal [facility] Comment on above: Order Comment: Speci men Type: FLUID SPECIMEN Ordering Facility: [facility] Address: [address] [place] [address] Performed By: #### L [id number] #### [facility] CLIA [id number] [address] [place] [address] [place] FINAL PERFORMING LAB Normal [facility] Comment on above: Order Comment: Speci men Type: FLUID SPECIMEN Ordering Facility: [facility] Address: [address] [place] [address] Result Comment: Tech nical component, account adjuster screening performed at [facility], [address] [place], [place] [id number] CLIA# [id number] Diagnostic interpretation performed at [facility], [address] [place], [place] [address] CLIA# [id number] Staff Nurse Anesthetist: Ezio Monterroso M.D. Performed By: #### L [id number] #### [facility] CLIA [id number] [address] [place] [place] [id number] [place] HPV REFLEX Yes HPV Normal [facility] Comment on above: Order Comment: Speci men Type: FLUID SPECIMEN Ordering Facility: [facility] Address: [address] [place] [address] Performed By: #### L [id number] #### [facility] CLIA [id number] [address] [place] [address] [place] INTERPRETATION, CYTOLOGY, ESL INSTRUCTOR Normal [facility] Comment on above: Order Comment: Speci men Type: FLUID SPECIMEN Ordering Facility: [facility] Address: [address] [place] [address] Result Comment: Nega tive for intraepithelial lesion or malignancy. Performed By: #### L [id number] #### [facility] CLIA [id number] [address] [place] [address] [place] LMP 09/13/2023 Normal [facility] Comment on above: Order Comment: Speci men Type: FLUID SPECIMEN Ordering Facility: [facility] Address: [address] [place] [address] Performed By: #### L [id number] #### [facility] CLIA [id number] [address] [place] [address] [place] PAP DISCLAIMER COMMENT The Pap Smear is a screening test for cervical cancer. False negative results occur with all screening tests, emphasizing the need for rescreening at recommended intervals, and clinical correlation. Normal [facility] Comment on above: Order Comment: Speci men Type: FLUID SPECIMEN Ordering Facility: [facility] Address: [address] [place] [address] Performed By: #### L [id number] #### [facility] CLIA [id number] [address] [place] [place] [id number] [place] PAP MANUAL LATHE MACHINIST COMMENT This specimen has be en analyzed by the ThinPrep Imaging System, an automated imaging and review system, which assists the laboratory in evaluating cells on ThinPrep Pap tests. Following automated imaging, selected cast from every slide are reviewed by a account adjuster. Normal [facility] Comment on above: Order Comment: Speci men Type: FLUID SPECIMEN Ordering Facility: [facility] Address: [address] [place] [address] Performed By: #### L [id number] #### [facility] CLIA [id number] [address] [facility] [id number] [place] [address] [place] Absolute lymphocyte counton 04-21-2022 Lymphocytes Auto (Unsp spec) [#/Vol] 1.26 10*3/uL 0.83-4.51 [facility] Work Phone: Basophil percentageon 2021 Basophils/100 WBC (Bld) 0.7 % 0-1 [facility] Work Phone: Eosinophils/100 WBC (Bld) 6.7 % 0-5 [facility] Work Phone: Neutrophils (Bld) [#/Vol] 3.6 10*3/uL 2.0-7.7 [facility] Work Phone: Neutrophils/100 WBC (Bld) 62.6 % 47-70 [facility] Work Phone: WBC (Bld) [#/Vol] 5.8 10*3/uL 4.4-11.0 [facility] Work Phone: Blood erythrocytes count (nu mber/volume)on 04-21-2022 RBC (Bld) [#/Vol] 4.20 10*6/uL 4.2-5.4 [facility] Work Phone: Blood hemoglobin measurement (mass/volume)on 04-21-2022 Hemoglobin (Bld) [Mass/Vol] 13.1 g/dL 12.0-15.0 [facility] Work Phone: Blood lymphocytes/100 leukoc yteson 04-21-2022 Lymphocytes/100 WBC (Bld) 21.8 % 19-41 [facility] Work Phone: Blood monocytes/100 leukocyt eson 04-21-2022 Monocytes/100 WBC (Bld) 8.0 % 0-10 [facility] Work Phone: Blood platelet mean volumeon 04-21-2022 Platelet mean volume (Bld) [Entitic vol] 10.1 fL 6.2-12.0 [facility] Work Phone: Determination of erythrocyte mean corpuscular volume (MCV)on 04-21-2022 MCV (RBC) [Entitic vol] 95.5 fL 81-99 [facility] Work Phone: Hematocrit Auto (Bld) [Volum e fraction]on 04-21-2022 Hematocrit (Bld) [Volume fraction] 40.1 % 37-47 [facility] Work Phone: Iron measurement (mass/mass) on 04-21-2022 Iron (Unsp spec) [Mass/Mass] 75 ug/dL 50-170 [facility] Work Phone: Laboratory - Chemistry and C hemistry - challengeon 04-21-2022 Cobalamin (Vitamin B12) [Mass/Vol] 904 pg/mL 211-911 [facility] Work Phone: Laboratory - Hematology and Cell countson 04-21-2022 Erythrocyte distribution width (RBC) [Entitic vol] 42.0 fL 35.1-43.9 [facility] Work Phone: Erythrocyte distribution width (RBC) [Ratio] 12.1 % 11.6-14.6 [facility] Work Phone: Immature granulocytes/100 WBC (Bld) 0.200 % 0.0-0.9 [facility] Work Phone: Comment on above: IG% - Immature Granu locytes (promyelocytes, myelocytes and metamyelocytes) > 1% indicates that a LEFT SHIFT is Present. MCH (RBC) [Entitic mass] 31.2 pg 27.0-32.0 [facility] Work Phone: Nucleated RBC/100 WBC (Bld) [Ratio] 0 % 0-5 [facility] Work Phone: MCHC Auto (RBC) [Mass/Vol]on 04-21-2022 MCHC (RBC) [Mass/Vol] 32.7 g/dL 32-36 [facility] Work Phone: No Panel Informationon 04-21 Vitamin D 25-Hydroxy 41.2 ng/mL [facility] Work Phone: Comment on above: Vitamin D 25(OH) Sta tus Range Deficiency <20 ng/mL (50nmol/L) Insufficiency 20 - 30 ng/mL (50 - 75 nmol/L) Sufficiency 30 - 100 ng/mL (75 - 250 nmol/L) Toxicity >100 ng/mL (>250 nmol/L) Platelets bldon 04-21-2022 Platelets (Bld) [#/Vol] 264 10*3/uL 150-450 [facility] Work Phone: Serum or plasma cortisol emy surement (mass/volume)on 04-21-2022 Cortisol [Mass/Vol] 14.30 ug/dL 3.44-22.45 [facility] Work Phone: Comment on above: Adult (AM) 5.27 - 22 .45 ug/dL Adult (PM) 3.44 - 16.76 ug/dLPlease note revised CORTISOL reference range effective 2020. Serum or plasma ferritin emy surement (mass/volume)on 04-21-2022 Ferritin [Mass/Vol] 17 ng/mL 8-252 [facility] Work Phone: Encounters Encounter Date Encounter Type Care Provider Facility Start: 08-12-2025 ambulatory Ashley Patel cility:[facility] Start: 10-17-2023 End: 10-17-2023 ambulatory [facility] Facility:[facility] Start: 10-17-2023 End: 10-17-2023 Subsequent hospital visit by physician [facility] Work Phone: Radiology Comment on above: Pelvic cramping [R10 .2] Start: 10-11-2023 End: 10-11-2023 ambulatory [facility] Facility:[facility] Start: 03-12-2023 Refill Jennifer muse MD Work Phone: OB/Gynecology Comment on above: Refill Request Start: 07-31-2022 Refill Jennifer muse MD Work Phone: OB/Gynecology Comment on above: Refill Request Start: 04-21-2022 End: 04-21-2022 Patient encounter procedure [facility] [place] Procedures Date Procedure Procedure Detail Performing Clinician Start: 10-10-2020 Mammography Jennifer chaudhary MD Work Phone: Start: 05-22-2014 Adult depression scr eening assessment Jennifer Perea MD Work Phone: Plan of Treatment Date Care Activity Detail Author Start: 09-04-2029 Urine microalbumin profile DTaP,Tdap,Td Vaccine (9 - Td or Tdap) [facility] Start: 02-11-2025 Urine microalbumin profile DTAP,TDAP,TD (7 - Td or Tdap) [facility] Start: 07-08-2023 Influenza vaccination [facility] Start: 11-07-2022 DEPRESSION ASSESSMENT DEPRESSION ASSESSMENT [facility] Start: 07-08-2022 Influenza vaccination INFLUENZA (#1) [facility] Start: 04-26-2022 HPV TESTING HPV TESTING [facility] Start: 04-26-2022 PAP TESTING PAP TESTING [facility] Start: 04-26-2022 Screening for malignant neoplasm of cervix [facility] Start: 10-10-2021 Mammography MAMMOGRAM [facility] Start: 10-10-2021 Screening for malignant neoplasm of breast Mammogram Screening [facility] Start: 05-22-2015 Adult depression screening assessment DEPRESSION SCREENING [facility] Start: 1996 HEPATITIS C SCREENING HEPATITIS C SCREENING [facility] Start: 1996 Hepatitis C screening Hepatitis C Screening [facility] Start: 1996 HIV SCREENING HIV SCREENING [facility] Start: 1996 HIV screening HIV Screening [facility] Start: 06-14-1979 COVID-19 VACCINE (#1) COVID-19 VACCINE (#1) [facility] Start: 1980 HEPATITIS B (1 of 3 - 3-dose series) HEPATITIS B (1 of 3 - 3-dose series) [facility] Start: 1980 Hepatitis B Vaccine (1 of 3 - 3-dose series) Hepatitis B Vaccine (1 of 3 - 3-dose series) [facility] Us pelvic nonobstetr ic image dcmtn limited/f/u US FEMALE PELVIS TRANSABD LTD Radiology Routine Pelvic cramping Dysmenorrhea 10/17/2023 11:14 AM EST [facility] Work Phone: Us transvaginal US FEMALE PELVIS TRANSVAG Radiology Routine Pelvic cramping Dysmenorrhea 10/17/2023 11:14 AM EST [facility] Work Phone: Immunizations Immunization Date Immunization Notes Care Provider Fa [facility] 09-03-2021 influenza virus vacc ine, unspecified formulation 1 Work Phone: [facility] 02-11-2015 tetanus toxoid, redu ivania diphtheria toxoid, and acellular pertussis vaccine, adsorbed Jennifer Perea MD Work Phone: [facility] 08-17-2013 influenza virus vacc ine, whole virus Jennifer Perea MD Work Phone: [facility] 07-03-1984 diphtheria, tetanus toxoids and acellular pertussis vaccine Jennifer Perea MD Work Phone: [facility] 07-03-1984 trivalent poliovirus vaccine, live, oral Jennifer Perea MD Work Phone: [facility] 04-08-1982 measles, mumps and rubella virus vaccine Jennifer Perea MD Work Phone: [facility] 09-10-1980 diphtheria, tetanus toxoids and acellular pertussis vaccine Jennifer Perea MD Work Phone: [facility] 09-10-1980 trivalent poliovirus vaccine, live, oral Jennifer Perea MD Work Phone: [facility] 10-24-1979 diphtheria, tetanus toxoids and acellular pertussis vaccine Jennifer Perea MD Work Phone: [facility] 06-01-1979 diphtheria, tetanus toxoids and acellular pertussis vaccine Jennifer Perea MD Work Phone: [facility] 06-01-1979 trivalent poliovirus vaccine, live, oral Jennifer Perea MD Work Phone: [facility] 03-28-1979 diphtheria, tetanus toxoids and acellular pertussis vaccine Jennifer Perea MD Work Phone: [facility] 03-28-1979 trivalent poliovirus vaccine, live, oral Jennifer Perea MD Work Phone: [facility] 01-31-1979 trivalent poliovirus vaccine, live, oral Jennifer Perea MD Work Phone: [facility] Payers Date Payer Category Payer Self-pay [id number] 2020 Unknown [id number] 2017 Unknown [id number] Unknown [id number] Social History Date Type Detail Facility Start: 11-19-2019 Tobacco smoking stat [facility] Unknown if ever smoked [facility] Work Phone: Start: 1980 Sex Assigned At Female [facility] Work Phone: Start[facility]11[facility] Start: 10-10-2020 End: 10-11-2023 Alcohol intake Current non-drinker of alcohol (finding) [facility] Start: 1980 Sex Assigned At Not on file [facility] Start: 10-11-2023 Tobacco use and exposure Smokeless tobacco non-user [facility] Start: 10-11-2023 History of Social function [facility] Start: 10-11-2023 Tobacco use panel [facility] National Score (1-100), lower number is lower risk 46 [facility] Progress note 10-17-2023 Note Date & Type Note Facility 10-17-2023 Note HNO ID: [id number] Author: Amy Multani RDMS Service: ? Author Type: Telephone Information Clerk Type: Progress Notes Filed: 10/17/2023 11:06 AM [...] Multani RDMS October 17, 2023 11:06 AM [facility] History of Present illness Narrative [...] 2023 11:06 AM documented in this encounter [facility] Progress note 10-11-2023 Note Date & Type Note Facility 10-11-2023 Note HNO ID: [id number] Author: Larisa Mahajan Ma Service: ? Author [...] Please send all open access questionnaires to [facility] Pool #[id number] [facility] Progress note 10-11-2023 Note Date & Type Note Facility 10-11-2023 Note HNO ID: [id number] Author: Chavez Law MD Service: ? Author Type: Physician Type: Progress Notes Filed: 10/11/2023 2:08 PM Note Text: Chemical Research Worker offered: Patient declines. Melonie is a 42 [...] L2 SAB0 IAB0 Ectopic0 Multiple0 Live Births0 Fibreglass Lay Up Worker History LMP: 09/26/2020 (Within Days), Having periods Age at Menarche: Age at First : Age at Menopause: Fibreglass Lay Up Worker History Comments: Sexual Activity: Yes; Male Contraception: [...] external genitalia normal, normal Bartholin's glands, urethra, [place]'s glands, no vulvar lesions, no cervical lesions, [...] or sooner as needed Chavez Law MD [facility] Evaluation note Note Date & Type Note Facility Evaluation note [facility] Evaluation note Note Date & Type Note Facility Evaluation note Diagnosis Pelvic cramping Unspecified symptom associated with female genital organs Dysmenorrhea documented in this encounter [facility] Chief Complaint and Reason for Visit Chief Complaint E ORDER Advance Directives No Advanced Directives Records Found Advance Directive Response Recorded Date/ Time Living Will Yes July 08 12:58pm Power of Continuous Process Rotary Drum Tanner Yes July 08, 2017 12:58pm Summary Purpose [...] or prosecute any alcohol or drug abuse patient.[facility] the event this information is protected by the Federal Confidentiality of Alcohol and Drug Abuse Patient Records regulations: The Federal rules restrict any use of the information to criminally investigate or prosecute any alcohol or drug abuse patient.[facility] the event this information is protected by the Federal Confidentiality of Alcohol and Drug Abuse Patient Records regulations: The Federal rules restrict any use of the information to criminally investigate or prosecute any alcohol or drug abuse patient.[facility] Reason for Visit (unrecogniz ed section and content) Reason Comments Refill Request Reason Comments Radiology US Specialty Diagnoses / Procedures Referred By Aliya t Referred To Contact US IMAGING Diagnoses Pelvic cramping Dysmenorrhea Procedures US FEMALE PELVIS TRANSVAG US TRANSVAGINAL Chavez Law MD [address] [place] [address] [facility] Referral ID Status Reason Start Date Expiration Date V isits Requested Visits Authorized [id number] Closed Auto-Generate d Referral 10/11/2023 11/09/2024 1 1 Care Teams (unrecognized sec tion and content) Sewing Machine Bobbin Winder Relationship Specialty Start Date End Date Arsh West MD [address] [place] [address] PCP - General 12/05/09 INFORMATION SOURCE (unrecogn ized section and content) DATE CREATED AUTHOR 10/22/2023 [facility] DATE CREATED AUTHOR AUTHOR'S KALLIE WOODS 08/13/[address] [facility] FOR RECORDS PERTAINING TO PATIENTS WHO ARE [...] BE BASED ON THE PRIMARY CLINICAL RECORDS. [employer] [facility]. provides no warranty or guarantee of the accuracy or completeness of information in this document.
[2025-10-11 11:08] LABS: HPV APTIMA, High Risk Negative (Negative)
== END | disposition home or self-care (01) ==
PROVIDERS: PCP Family Medicine; Referring Provider Obstetrics & Gynecology; Visit Provider Obstetrics & Gynecology
DX: Z12.4 Encounter for screening for malignant neoplasm of cervix (principal)
CPT/HCPCS: 87624; 88175; G0145